=== PATIENT | male | born 1955 | race Caucasian/White ===

== ENCOUNTER → 2019-01-03 | Outpatient (CLI) | payer OTHER ==
--- NOTE | 2019-01-03 19:58 | XCELERA REPORT ---
[address] [address] Transthoracic Echocardiogram Report Name: TRES GUARDADO Age: 63 yrs Gender: Male : 1955 Patient Status: Outpatient Patient Location: Study Date: 01/03/2019 01:16 PM Height: 73 in Weight: 345 lb BSA: 2.7 m2 Reason For Study: CHF Ordering Physician: CYNDY CUNNINGHAM Performed By: Mike Hampton Interpretation Summary Technically very poor study due to poor PLAX, and no Apical 2 chamber view, and overall poor endocardial definition in apical 4 chamber view. Pt is 345#. No contrast used to show endocardium. No signif post pericardial effusion. Aortic root calcified, not dilated. AV poor visualised on short axis, configuration obscured. No doppler evidence of and no color flow evidence of AR. Mild mitral annular calcification, no MS, and faint MR and no LA enlargement. LV is poorly imaged. Unable to see Lat wall, and no inferior and no anterior wall visualized. No LV dilatation, The IVS is hypokinetic, Post wall is normal. The rest is not visualized. Overall LVEF from PLAX and Apical 4 chamber view is estimated to be within normal. But there is stage I LV diastolic dysfunction, even tho there is no LVH . RH chambers are not enlarged, Faint TR with poor TR jet , prob no pulm hypertension. RVSP may be 24+3 mm Hg, this is not reliable. MMode/2D Measurements & Calculations RVDd: 3.1 cm LVIDd: 5.8 cm FS: 38.9 % Ao root diam: 3.1 cm IVSd: 1.0 cm LVIDs: 3.6 cm EDV(Teich): 169.2 ml LVPWd: 1.0 cm ESV(Teich): 53.4 ml Ao root area: 7.7 cm2 LA dimension: 3.7 cm EF(Teich): 68.5 % Doppler Measurements & Calculations MV E max moncho: MV P1/2t max moncho: Ao V2 max: LV V1 max P.7 cm/sec 60.9 cm/sec 95.1 cm/sec 3.2 mmHg MV A max moncho: MV P1/2t: 76.7 msec Ao max P.6 mmHg LV V1 max: 59.5 cm/sec MVA(P1/2t): 2.9 cm2 89.2 cm/sec MV E/A: 0.85 MV dec slope: 232.7 cm/sec2 MV dec time: 0.30 sec PA V2 max: TR max moncho: MV P1/2t-pr_phl: 70.1 cm/sec 245.7 cm/sec 76.7 msec PA max P.0 mmHgTR max P.1 mmHg I WMSI = 1.63 % Normal = 38 Segments Size X - Cannot 2 - 4 - 1-2 small Interpret 1 - Normal Hypokinetic 3 - AkineticDyskinetic 3-5 moderate 5 - 6-14 large Aneurysmal 15-16 diffuse : CYNDY CUNNINGHAM, Gelacio
== END ==
LOC: SP 12:19
PROVIDERS: ATTEND Family Medicine
DX: I50.32 Chronic diastolic (congestive) heart failure (principal)
CPT/HCPCS: 93306